=== PATIENT | female | born 1940 | race Hispanic/Latino ===

== ENCOUNTER 2019-05-28 17:44 | Observation (INO) | payer MEDICARE, OTHER ==
[~2019-05-28] VITALS: Ht 154.9 cm; Wt 68.0 kg
[2019-05-28 18:13] LABS: BASOPHILS # (AUTO) 0.1 (0.0-0.1); BASOPHILS % 0.6 % (0.0-1.0); EOSINOPHILS # (AUTO) 0.1 (0.0-0.4); EOSINOPHILS % 1.1 % (0.0-6.0); HEMATOCRIT 39.3 % (34.2-44.1); HEMOGLOBIN 12.5 g/dL (12.0-16.0); LYMPHOCYTES # (AUTO) 1.6 (1.0-3.2); LYMPHOCYTES % 16.9 % (18.0-39.1); MEAN CORPUSCULAR HEMOGLOBIN 28.1 pg (28-32); MEAN CORPUSCULAR HGB CONC 31.8 g/dL (31-35); MEAN CORPUSCULAR VOLUME 88.3 fL (81-99); MONOCYTES # (AUTO) 0.7 (0.2-0.8); MONOCYTES % 6.9 % (4.4-11.3); NEUTROPHILS # (AUTO) 7.1 (2.1-6.9); NEUTROPHILS % 74.1 % (38.7-80.0); PLATELET COUNT 187 x10e3/uL (140-360); RED BLOOD COUNT 4.45 x10e6/uL (3.6-5.1); RED CELL DISTRIBUTION WIDTH 13.7 % (11.7-14.4)
[2019-05-28 18:22] LABS: INR 0.85; PARTIAL THROMBOPLASTIN TIME 26.9 seconds (23.8-35.5); PROTHROMBIN TIME 12.1 seconds (11.9-14.5)
[2019-05-28 18:25] LABS: BILIRUBIN,URINE NEGATIVE (NEGATIVE); CLARITY,URINE CLOUDY (CLEAR); COLOR,URINE YELLOW (YELLOW); KETONES,URINE NEGATIVE (NEGATIVE); LEUKOCYTE ESTERASE ,URINE LARGE (NEGATIVE); NITRITE,URINE POSITIVE (NEGATIVE); PROTEIN,URINE DIPSTICK NEGATIVE (NEGATIVE); URINE UROBILINOGEN 0.2 mg/dL (0.2 - 1)
[2019-05-28 18:33] LABS: ALANINE AMINOTRANSFERASE 9 IU/L (0-55); ALBUMIN 3.5 g/dL (3.5-5.0); ALKALINE PHOSPHATASE 74 IU/L (40-150); ANION GAP 11.8 mmol/L (8-16); BLOOD UREA NITROGEN 17 mg/dL (7-26); BUN/CREATININE RATIO 22 (6-25); CALCIUM 9.2 mg/dL (8.4-10.2); CARBON DIOXIDE 27 mmol/L (22-29); CHLORIDE 104 mmol/L (98-107); CREATINE KINASE 81 IU/L (29-168); CREATININE, SERUM 0.79 mg/dL (0.57-1.11); EST GLOMERULAR FILTRATION RATE > 60 ML/MIN (60-); GLUCOSE 76 mg/dL (74-118); MAGNESIUM 1.8 MG/DL (1.3-2.1); POTASSIUM 3.8 mmol/L (3.5-5.1); SODIUM 139 mmol/L (136-145)
--- NOTE | 2019-05-28 18:34 | Diagnostic Imaging Report ---
Examination: Single AP view of the chest. COMPARISON: None. INDICATION: Nausea, weakness DISCUSSION: Lines/tubes: None. Lungs: The lungs are well inflated and clear. No pneumonia or pulmonary edema. Pleura: No pleural effusion or pneumothorax. Heart and mediastinum: The heart and the mediastinum are unremarkable. Bones and soft tissues: No acute bony abnormalities. IMPRESSION: 1. No acute cardiopulmonary abnormalities. Signed by: Dr. Jamie Zafar M.D. on 05/28/2019 6:30 PM
[2019-05-28 18:37] LABS: BACTERIA,URINE MANY /HPF; EPITHELIAL CELLS,URINE FEW /LPF; RBC,URINE 0-5 /HPF (0-5)
[2019-05-28] MEDS ORDERED: CEFTRIAXONE SOD 1 GM/NS 50 ML 50 ML IV ONE (18:45)
--- NOTE | 2019-05-28 19:42 | Diagnostic Imaging Report ---
EXAMINATION: Head CT without contrast. HISTORY:Dizziness. COMPARISON:None. TECHNIQUE: Multidetector axial images were obtained from the foramen magnum to the vertex without contrast. The images were reconstructed using brain and bone algorithms. Thin section brain images were reformatted into coronal and sagittal planes. Dose modulation, iterative reconstruction, and/or weight based adjustment of the mA/kV was utilized to reduce the radiation dose to as low as reasonably achievable. Intravenous contrast: None IMAGE QUALITY: Acceptable. FINDINGS: Skull/scalp: No lytic or blastic. lesions. No surgical changes. Parenchyma: Nonspecific bilateral frontoparietal confluent periventricular, subcortical and deep white matter hypodensity are likely related to small vessel ischemic changes. No acute hemorrhage, mass or acute major vascular territorial infarct. Arteries: No density suggestive of thrombosis. Dural sinuses: No abnormal density suggestive of thrombosis. Ventricles: No hydrocephalus or displacement. Extra-axial spaces: No abnormal density. Brain volume: Normal for age. Craniocervical junction: No mass, Chiari malformation, or basilar invagination. Sella: No mass. Paranasal/mastoid sinuses: Imaged portions unremarkable. IMPRESSION: No acute intracranial abnormality. Moderate to severe supratentorial white matter microvascular ischemic changes. Signed by: Dr. Karla Salcedo M.D. on 05/28/2019 7:39 PM
--- OUTSIDE RECORDS SUMMARY | 2019-05-28 20:06 | XMS REPORT ---
Author [facility] Address Unknown Phone Unavailable Care Team Providers Care Tool Procurement Coordinator Name Role Phone Rosy BURNS Unavailable Unavailable Problems This patient has no known problems. Allergies, Adverse Reactions, Alerts This patient has no known allergies or adverse reactions. Medications This patient has no known medications. Results Test Description Test Time Test Comments Text Results Atomic Results Result Comments CT BRAIN WO 2019-05-28 19:36:00 [facility] [address] [address] Patient Name: ABILIO CUELLAR MR #: [id number] : 1940 Age/Sex: 79/F Req #: [id number] [facility] Physician: Ordered by: PEDRO PABLO FIELDS AREA SAFETY MANAGER Report #: [id number] Location: ER Room/Bed: Procedure: [id number] CT/CT BRAIN WO Exam Date: 05/28/19 Exam Time: 1850 REPORT STATUS: Signed EXAMINATION: Head CT without contrast. HISTORY:Paloma willis. COMPARISON:None. TECHNIQUE: Multidetector axial images were obtained from the foramen magnum to the vertex without contrast. The images were reconstructed using brain and bone algorithms. Thin section brain images were reformatted into coronal and sagittal planes. Dose modulation, iterative reconstruction, and/or weight based adjustment of the mA/kV was utilized to reduce the radiation dose to as low as reasonably achievable. Intravenous contrast: None IMAGE QUALITY: Acceptable. FINDINGS: Skull/scalp: No lytic or blastic. lesions. No surgical changes. Parenchyma: Nonspecific bilateral frontoparietal confluent periventricular, subcortical and deep white matter hypodensity are likely related to small vessel ischemic changes. No acute hemorrhage, mass or acute major vascular territorial infarct. Arteries: No density suggestive of thrombosis. Dural sinuses: No abnormal density suggestive of thrombosis. Ventricle s: No hydrocephalus or displacement. Extra-axial spaces: No abnormal density. Brain volume: Normal for age. Craniocervical junction: No mass, Chiari malformation, or basilar invagination. Sella: No mass. Paranasal/mastoid sinuses: Imaged portions unremarkable. IMPRESSION: No acute intracranial abnormality. Moderate to severe supratentorial white matter microvascular ischemic changes. Signed by: Dr. Karla Harry M.D. on 05/28/2019 7:39 PM Dictated By: KARLA HARRY MD 38 Transcribed By: KWAME on 05/28/191938 COPY TO: PEDRO PABLO FIELDS NP CHEST SINGLE (PORTABLE) 2019-05-28 18:28:00 [address] [address] Patient Name: ABILIO CUELLAR MR #: [id number] : 1940 Age/Sex: 79/F Req #: [id number] Adm Physician: Ordered by: PEDRO PABLO FIELDS NP Report #: [id number] Location: ER Room/Bed: Procedure: [id number] DX/CHEST SINGLE (PORTABLE) Exam Date: 05/28/19 Exam Time: 1810 REPORT STATUS: Signed Examination: Single AP view of the chest. C OMPARISON: None. INDICATION: Nausea, weakness DISCUSSION: Lines/tubes: None. Lungs: The lungs are well inflated and clear. No pneumonia or pulmonary edema. Pleura: No pleural effusion or pneumothorax. Heart and mediastinum: The heart and the mediastinum are unremarkable. Bones and soft tissues: No acute bony abnormalities. IMPRESSION: 1. No acute cardiopulmonary abnormalities. Signed by: Dr. Abdulaziz Fleming M.D. on 05/28/2019 6:30 PM Dictated By: ABDULAZIZ FLEMING MD 29 Transcribed By: KWAME on 05/28/191829 COPY TO: PEDRO PABLO FIELDS NP
[2019-05-28 21:04] VITALS: BP 153/82
--- NOTE | 2019-05-28 21:04 | NUR ---
Received report from ER nurse, Kareem. Patient arrived via stretcher. Patient A&Ox3. Patient in bed. Call light within reach.
[2019-05-28 21:30] VITALS: BP 153/82
[2019-05-29] VITALS (8 sets, daily range): BP systolic 129–179; BP diastolic 61–81
[2019-05-29 03:48] LABS: CHOL/HDL RATIO 2.6 (3.0-3.6)
[2019-05-29 04:40] LABS: CREATINE KINASE 85 IU/L (29-168)
[2019-05-29 05:52] LABS: CREATINE KINASE 84 IU/L (29-168)
--- NOTE | 2019-05-29 07:05 | NUR ---
Gave report to oncoming nurse. Call light within reach. Patient asleep in bed.
[2019-05-29] MEDS: CEFTRIAXONE SOD 1 GM/NS 50 ML 50 ML IV SCH (10:10)
[2019-05-29] MEDS: SODIUM CHLORIDE 0.9% 1000ML 1,000 ML IV SCH ×2 (10:10→22:08)
--- NOTE | 2019-05-29 12:21 | History and Physical ---
PRIMARY CARE PHYSICIAN: Dr. Oscar Peng. CHIEF COMPLAINT: 1. New syncopal episode. 2. Generalized weakness. HISTORY OF PRESENT ILLNESS: The patient is a 79-year-old female, mild functional dementia while she was in her kitchen standing, preparing food, she became dizzy, having episode with near passing out, but no loss of consciousness. The patient came to the emergency room for evaluation. Lab work and blood pressure unremarkable except for urinalysis showed that she had a urinary tract infection. The patient is stating that after the antibiotics and IV fluids, she felt much better. She did not complain of any chest pain or shortness of breath. The patient is comfortable at this time. PAST MEDICAL HISTORY: Noncontributory other than vascular functional dementia. PAST SURGICAL HISTORY: None. SOCIAL HISTORY: The patient does not smoke or use alcohol. No regular drugs. ALLERGIES: TO CODEINE. HOME MEDICATIONS: Not available. PHYSICAL EXAMINATION: VITAL SIGNS: Temperature is 98, blood pressure 145/67, pulse rate is 80, and respirations 18. GENERAL: The patient is not in acute distress. She is awake. HEENT: Normocephalic and atraumatic. Pupils reactive. Anicteric. NECK: Supple grossly. PULMONARY: Clear. CARDIOVASCULAR: Regular rate and rhythm. ABDOMEN: Soft, nontender, non-distention. EXTREMITIES: No cyanosis or edema. NEUROLOGIC: No gross focal deficit. DIAGNOSTIC DATA: Chest x-ray unremarkable. Brain CT scan show [id number] supratentorial white matter microvascular ischemic changes. Urinalysis, a lot of bacteria. LABORATORY DATA: Sodium is 139, potassium 3.8, chloride 104, bicarb 27, BUN 17, creatinine 0.8, and glucose is 76. Cardiac enzymes are negative. WBC is 9.5, hemoglobin 12.5, hematocrit 39, and platelets 187. IMPRESSION: 1. Dehydration. 2. Urinary tract infection. PLAN: Continue Rocephin. We will monitor the patient closely. We will give the patient IV fluids. We will check for urine culture and once the urine culture is available, the patient should be able to go home with more narrow sensitive antibiotic for her bladder infection. MD KACY Michaud/PUJA /[id number]
[2019-05-29 14:53] LABS: CREATINE KINASE 78 IU/L (29-168)
--- NOTE | 2019-05-29 15:53 | NUR ---
Patient does not want to participate in DPA right now, states she is too busy.
--- NOTE | 2019-05-29 19:00 | NUR ---
RECEIVED PATIENT IN BEDSIDE REPORT. PATIENT RESTING IN BED AT THIS TIME, NO PAIN REPORTED. NO S&S OF DISTRESS NOTED. BED LOCKED IN LOWEST POSITION, SIDE RAILS UPX2, CALL LIGHT IN REACH.
[2019-05-30] VITALS: BP 160/79
[2019-05-30 04:00] VITALS: BP 162/90
--- NOTE | 2019-05-30 07:00 | NUR ---
Received patient lying in bed with eyes open. Respiration even and unlabored without SOB. Call light in reach.
[2019-05-30 07:51] VITALS: BP 187/84
[2019-05-30 09:03] VITALS: BP 187/84
[2019-05-30] MEDS: CEFTRIAXONE SOD 1 GM/NS 50 ML 50 ML IV SCH (10:03)
[2019-05-30] MEDS ORDERED: LISINOPRIL 10 MG TAB PO ONE (11:30)
[2019-05-30] MEDS ORDERED: KEFLEX500 MG PO (11:30)
[2019-05-30] MEDS ORDERED: LISINOPRIL10 MG PO (11:31)
[2019-05-30 11:46] VITALS: BP 182/105
--- NOTE | 2019-05-30 12:55 | NUR ---
PIV to right AC discontinued. Catheter tip intact, no bleeding noted. Patient is to discharge to home today as ordered.
--- NOTE | 2019-05-30 13:55 | NUR ---
Transported patient at this time via wheelchair to private vehicle with all personal belongings with her.
--- NOTE | 2019-05-31 05:51 | Discharge Summary ---
The patient is on observation. DATE OF OBSERVATION: May 29, 2019. PRIMARY CARE PHYSICIAN: Dr. Oscar Peng. FINAL DIAGNOSES: 1. Near syncopal episode with generalized weakness secondary to urinary tract infection with Escherichia coli. 2. Hypertension, uncontrolled. SUMMARY: The patient is a 79-year-old female, not seen her family physician for some time, but the patient does have hypertension. She came in because her blood pressure was elevated, but also with some dizziness and weakness. Her symptom has significantly improved. The patient is stable. She does have E coli infection. The patient is given Keflex 500 mg 3 times a day for going home for 7 days. She is also taking lisinopril 10 mg daily. The patient is stable. She is comfortable. She want to go home and I agreed. She will follow up with Dr. Oscar Peng for her blood pressure check and adjustment of medication. She will take Keflex 500 mg 3 times a day for 7 days and lisinopril 10 mg daily. The patient is stable and discharged home today. MD KACY Michaud/PUJA /[id number]
== END 2019-05-30 13:55 | disposition home or self-care (01) ==
LOC: ER 17:44 → ERHOLD 20:02 → MED/SURG 21:04
PROVIDERS: ADMIT Internal Medicine; ATTEND Internal Medicine
DX: N30.00 Acute cystitis without hematuria (principal); R55 Syncope and collapse; F03.90 Unspecified dementia, unspecified severity, without behavioral disturbance, psychotic disturbance, mood disturbance, and anxiety; E86.0 Dehydration; I16.0 Hypertensive urgency; B96.20 Unspecified Escherichia coli [E. coli] as the cause of diseases classified elsewhere; I10 Essential (primary) hypertension
CPT/HCPCS: 36415; 70450; 71045; 80053; 80061; 81001; 82550 ×2; 82553 ×2; 83735; 83880; 84484 ×2; 85025; 85610; 85730; 87086; 87186; 93005; 93306; 99284; G0378 ×3; J0696 ×3; J7030

== ENCOUNTER 2020-12-09 12:01 | Emergency (ER) | payer MEDICARE, OTHER ==
[~2020-12-09] VITALS: Ht 154.9 cm; Wt 68.0 kg
[~2020-12-09 12:01] MED LIST: KEFLEX500 MG PO; LISINOPRIL10 MG PO
[2020-12-09] MEDS ORDERED: ULTRAM50 MG PO (14:50)
== END 2020-12-09 15:00 | disposition home or self-care (01) ==
LOC: ER 12:37
DX: M54.42 Lumbago with sciatica, left side (principal); R60.9 Edema, unspecified; M25.562 Pain in left knee; M17.12 Unilateral primary osteoarthritis, left knee
CPT/HCPCS: 72100; 93971; 99283

== ENCOUNTER 2021-09-14 14:19 | Emergency (ER) | payer MEDICARE, OTHER ==
[~2021-09-14] VITALS: Ht 152.4 cm; Wt 72.6 kg
[~2021-09-14 14:19] MED LIST changes: +ULTRAM50 MG PO
[2021-09-14] MEDS ORDERED: ACYCLOVIR 200 MG CAP PO STA (15:04)
[2021-09-14] MEDS ORDERED: ACYCLOVIR800 MG PO (15:07)
[2021-09-14] MEDS ORDERED: TRAMADOL HCL 50 MG TAB PO ONE (15:15)
== END 2021-09-14 15:54 | disposition home or self-care (01) ==
LOC: ER 14:26
DX: R10.31 Right lower quadrant pain (principal); B02.9 Zoster without complications
CPT/HCPCS: 99283

== ENCOUNTER 2021-09-23 09:25 | Emergency (ER) | payer MEDICARE, OTHER ==
[~2021-09-23] VITALS: Ht 154.9 cm; Wt 72.6 kg
[~2021-09-23 09:25] MED LIST changes: +ACYCLOVIR800 MG PO
[2021-09-23] MEDS ORDERED: SODIUM CHLORIDE 0.9% 1000ML 1,000 ML IV STA (09:29)
[2021-09-23] MEDS ORDERED: ONDANSETRON HCL INJ 2MG/ML 2ML 2 MG/ML VIAL IV PRN (09:30)
[2021-09-23 10:40] LABS: BASOPHILS # (AUTO) 0.1 (0.0-0.1); BASOPHILS % 0.6 % (0.0-1.0); EOSINOPHILS # (AUTO) 0.1 (0.0-0.4); EOSINOPHILS % 0.6 % (0.0-6.0); HEMATOCRIT 39.6 % (34.2-44.1); HEMOGLOBIN 13.3 g/dL (12.0-16.0); LYMPHOCYTES # (AUTO) 1.4 (1.0-3.2); LYMPHOCYTES % 18.5 % (18.0-39.1); MEAN CORPUSCULAR HEMOGLOBIN 28.2 pg (28-32); MEAN CORPUSCULAR HGB CONC 33.6 g/dL (31-35); MEAN CORPUSCULAR VOLUME 83.9 fL (81-99); MONOCYTES # (AUTO) 0.6 (0.2-0.8); MONOCYTES % 7.6 % (4.4-11.3); NEUTROPHILS # (AUTO) 5.6 (2.1-6.9); NEUTROPHILS % 72.1 % (38.7-80.0); PLATELET COUNT 255 x10e3/uL (140-360); RED BLOOD COUNT 4.72 x10e6/uL (3.6-5.1); RED CELL DISTRIBUTION WIDTH 13.6 % (11.7-14.4)
[2021-09-23 11:02] LABS: ALBUMIN 3.8 g/dL (3.5-5.0); ALBUMIN/GLOBULIN RATIO 1.1 (0.8-2.0); ANION GAP 12.7 mmol/L (8-16); CALCIUM 9.5 mg/dL (8.4-10.2); CREATININE, SERUM 0.78 mg/dL (0.57-1.11); POTASSIUM 3.7 mmol/L (3.5-5.1)
[2021-09-23] MEDS ORDERED: IOPAMIDOL 370 MG/ML 200 ML INFUS..BTL INJ ONE (11:51)
[2021-09-23] MEDS ORDERED: SODIUM CHLORIDE 0.9% 50ML 50 ML ONE (11:51)
[2021-09-23] MEDS ORDERED: GOLYTELY SOLU4000 M1 PO (12:56)
[2021-09-23 13:19] LABS: CLARITY,URINE CLOUDY (CLEAR); COLOR,URINE YELLOW (YELLOW); LEUKOCYTE ESTERASE ,URINE TRACE (NEGATIVE)
[2021-09-23 13:20] LABS: KETONES,URINE NEGATIVE (NEGATIVE); NITRITE,URINE POSITIVE (NEGATIVE); PROTEIN,URINE DIPSTICK NEGATIVE (NEGATIVE); URINE UROBILINOGEN 0.2 mg/dL (0.2 - 1)
[2021-09-23 13:38] LABS: BACTERIA,URINE MODERATE /HPF; EPITHELIAL CELLS,URINE FEW /LPF; RBC,URINE 0-5 /HPF (0-5)
[2021-09-23] MEDS ORDERED: CEPHALEXIN500 MG PO (13:45)
== END 2021-09-23 13:57 | disposition home or self-care (01) ==
LOC: ER 09:43
DX: K59.00 Constipation, unspecified (principal); N39.0 Urinary tract infection, site not specified; Z20.822 Contact with and (suspected) exposure to COVID-19; F17.210 Nicotine dependence, cigarettes, uncomplicated
CPT/HCPCS: 36415; 70450; 74177; 80053; 81001; 83690; 85025; 93005; 99284; J2405; J7030; Q9967; U0002

== ENCOUNTER 2024-09-02 11:59 | Emergency (ER) | payer MEDICARE, MEDICAID ==
[~2024-09-02] VITALS: Ht 154.9 cm; Wt 72.6 kg
[~2024-09-02 11:59] MED LIST changes: +CEPHALEXIN500 MG PO; +GOLYTELY SOLU4000 M1 PO
[2024-09-02 12:18] VITALS: TEMP 98.4
[2024-09-02 13:45] VITALS: PULSE 76; RESP 17; O2SAT 100
== END 2024-09-02 14:03 | disposition home or self-care (01) ==
LOC: ER 13:44
DX: M25.562 Pain in left knee (principal); G89.29 Other chronic pain; I10 Essential (primary) hypertension
CPT/HCPCS: 99282